=== PATIENT | male | born 1970 | race Caucasian/White ===

== ENCOUNTER 2023-01-10 01:06 | Emergency (ER) | payer OTHER, SELFPAY ==
[2023-01-10 01:14] VITALS: BP 158/99; PULSE 87; RESP 20; TEMP 36.2; O2SAT 98
--- NOTE | 2023-01-10 01:17 | PC.NURSE ---
Wound cleansed with normal saline. Bandage applied in triage and wrapped with coban.
--- NOTE | 2023-01-10 01:43 | ED.GENADULT ---
HPI - General Adult General Chief complaint: Extremity Injury, Lower Stated complaint: Laceration to left te Time Seen by Provider: 01/10/23 01:35 History of Present Illness HPI narrative: this is a 52-year-old male presenting to ED with chief complaint of toe laceration. He was walking on his driveway barefoot when he tripped and hit the tip of his toe on the ground. He has laceration to the tip of his right great toe. No other injuries. He does not know when his last Tdap was. He is not diabetic. Related Data Allergies Allergy/AdvReac Type Severity Reaction Status Date / Time Penicillins Allergy Unknown Verified 01/10/23 01:16 [facility] Past Medical History Medical History (Updated 01/10/23 @ 01:47 by Seth Nettles MD) Gout Social History Social History (Updated 01/10/23 @ 01:44 by Seth Nettles MD) Social History: drinks alcohol occasionally Exam Narrative: APPEARANCE: No apparent distress. Head: atraumatic. EYES: EOMI, NOSE: Atraumatic NECK: Trachea midline RESPIRATORY: No increased rate of breathing CARDIOVASCULAR: RRR, ABDOMINAL: Non-distended MUSCULOSKELETAl: focal exam of the left lower extremity revealed a avulsion of the skin on the tip of the toe with no exposed bone. Approximately 1 cm in diameter. No involvement of deeper structures. NEURO: Alert. Moving 4/4 extremities SKIN:: Warm, dry. Normal color PSYCHIATRIC: Normal affect Course Vital Signs Vital signs: Vital Signs Temperature 97.1 F L 01/10/23 01:14 Pulse Rate 87 01/10/23 01:14 Respiratory Rate 20 01/10/23 01:14 Blood Pressure 158/99 H 01/10/23 01:14 Pulse Oximetry 98 01/10/23 01:14 Oxygen Delivery Room Air 01/10/23 01:14 Temperature 97.1 F L 01/10/23 01:14 Pulse Rate 87 01/10/23 01:14 Respiratory Rate 20 01/10/23 01:14 Blood Pressure 158/99 H 01/10/23 01:14 Pulse Oximetry 98 01/10/23 01:14 Oxygen Delivery Room Air 01/10/23 01:14 Medical Decision Making MDM Narrative Medical decision making narrative: -Presentation: 52-year-old presenting with a toe laceration. The skin appears devitalized and I am not going to suture back down. We will dress it with a bandage see if the skin flap survives otherwise will have to heal by secondary intention. Wound was cleaned and dressed with bacitracin. Tdap booster was given. 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 -Procedures: -Interventions: Tdap, bacitracin -Shared decision making / Disposition: patient was discharged with primary care follow-up. Due to the location of injury he will be given a short course of Keflex. -RX Keflex 500 mg b.i.d. x5 days Vital Signs Vital Signs: Vital Signs Temperature 97.1 F L 01/10/23 01:14 Pulse Rate 87 01/10/23 01:14 Respiratory Rate 20 01/10/23 01:14 Blood Pressure 158/99 H 01/10/23 01:14 Pulse Oximetry 98 01/10/23 01:14 Oxygen Delivery Room Air 01/10/23 01:14 Temperature 97.1 F L 01/10/23 01:14 Pulse Rate 87 01/10/23 01:14 Respiratory Rate 20 01/10/23 01:14 Blood Pressure 158/99 H 01/10/23 01:14 Pulse Oximetry 98 01/10/23 01:14 Oxygen Delivery Room Air 01/10/23 01:14 Discharge Plan Discharge Clinical Impression: Avulsion of toe Patient Disposition: Home, Self-Care Condition: Stable Instructions: Antibiotic Form Additional Instructions: he was seen in the emergency department for a toe laceration. Please take a 5 day course of Keflex and keep the wound clean and dry. Please wear loose fitti
[2023-01-10] MEDS: TETANUS,DIPHTHERIA,AC PERTUSSIS ADULT (0.5 ML) BOOSTRIX IM (01:53)
[2023-01-10] MEDS: BACITRACIN OINTMENT 15 GM TUBE 1 APPLIC TOPICAL (01:54)
--- NOTE | 2023-02-13 11:31 | PC.NURSE ---
LATE ENTRY This note is being entered to document information to the patient's record. The following information was omitted on [01/10/23], by []. Wound site verified to be the Right 1st toe.
== END 2023-01-10 02:09 | disposition home or self-care (01) ==
LOC: ANHED 01:57
PROVIDERS: Emergency Provider Emergency Medicine; PCP Family Medicine Sports Medicine
DX: S91.112A Laceration without foreign body of left great toe without damage to nail, initial encounter (principal); M10.9 Gout, unspecified; W18.40XA Slipping, tripping and stumbling without falling, unspecified, initial encounter
CPT/HCPCS: 90471; 90715; 99283; A9270

== ENCOUNTER 2024-10-26 00:19 | Day surgery (SDC) | payer OTHER, SELFPAY ==
[2024-10-20 08:37] VITALS: BMI 36.2
--- NOTE | 2024-10-25 15:01 | WPDANESEPPF ---
Anes - Initial Pre Proc Eval Procedure: Operation Date: 10/26/24 08:00 Proposed Procedures p Screening Colonoscopy - Lul Marie MD Date/Time: 10/25/24 15:01 Surgeon: Lul Marie MD Pre Op Diagnosis: screening malignant neoplasm colon Patient Data Age: 54 Gender: M Height: 1.91 m Weight: 131.5 kg Allergies Allergy/AdvReac Type Severity Reaction Status Date / Time Penicillins Allergy Unknown Verified 10/20/24 08:31 Home Medications ?Medication ?Instructions ?Recorded ?Confirmed ?Type cephalexin 500 mg capsule 500 mg PO Q12H #10 caps 01/10/23 10/20/24 Rx allopurinol 100 mg tablet 100 mg PO DAILY 10/20/24 10/26/24 History ascorbic acid (vitamin C) 500 mg 500 mg PO DAILY 10/20/24 10/26/24 History chewable tablet (Acerola C) atorvastatin 20 mg tablet 20 mg PO QPM 10/20/24 10/26/24 History nppbgpvc-qdm-vhvkf acid 200 1 tablet PO DAILY 10/20/24 10/26/24 History mcg-vit K1 60 mcg-lycopene 600 mcg tablet (Men's Multivitamin) omega 4-wzb-iiz-fish oil 1,000 mg 1 cap PO DAILY 10/20/24 10/26/24 History (120 mg-180 mg) capsule (Fish Oil) vitamins A,C,L-smea-lbodgh 2,148 1 tablet PO ONCE 10/20/24 10/26/24 History mcg-113 mg-45 mg-17.4 mg tablet (PreserVision AREDS) Patient hx anesthesia problems: none Family hx anesthesia problems: none Results Review: All pre-operative results and documents have been reviewed as part of the pre-operative evaluation. FOR[facility]LY [facility], [facility] Past Medical History Medical History (Updated 10/26/24 @ 07:12 by Avery Goncalves DO) YANDEL (obstructive sleep apnea) GERD (gastroesophageal reflux disease) Hyperlipidemia Gout Surgical History Surgical History (Updated 10/25/24 @ 15:01 by Avery Goncalves DO) Hx of appendectomy Social History Social History (Updated 10/26/24 @ 07:12 by Avery Goncalves DO) Social History: drinks alcohol occasionally Smoking status: Never smoker Alcohol intake: never Substance use: current Substance use type: marijuana Other substance usage details: occasional Living arrangements: with family Spiritual care concerns: No Anes - Eval Final PreProcedure Day of Procedure 10/25/24 15:01 Patient weight: obese Heart: regular rate and rhythm Lungs: clear to auscultation Airway: Mallampati scale class II Neurological: alert and oriented Last oral intake: >/= 8 hours ASA classification: III Emergent: no Anesthetic plan: proceed Anesthesia type and monitoring: general GIVS and standard monitoring Results Review: All pre-operative results and documents have been reviewed as part of the pre-operative evaluation. Informed Consent: The patient's anesthetic plan and its attendant risks and benefits were discussed with the patient/family/POA. Questions were solicited and answers provided to the satisfaction of the patient/family/POA.
[2024-10-26 06:48] VITALS: BP 129/98; PULSE 83; RESP 16; TEMP 36; O2SAT 100
[2024-10-26] MEDS: LACTATED RINGERS 1,000 ML 150 ML IV CONT (07:00)
--- NOTE | 2024-10-26 07:46 | PM.HPGS ---
History of Present Illness History of Present Illness Consent: Risks, benefits, and alternatives have been discussed and questions answered. Patient agrees to proceed with procedure. Chief complaint: screening malignant neoplasm colon Narrative: Seth Gramajo is a 54 year old male here for first screening colonoscopy Review of Systems Review of Systems: All systems reviewed & are unremarkable except as noted in HPI and below PMFSH Past Medical History Medical History (Updated 10/26/24 @ 07:46 by Lul Marie MD) Colon cancer screening YANDEL (obstructive sleep apnea) GERD (gastroesophageal reflux disease) Hyperlipidemia Gout Surgical History Surgical History (Updated 10/25/24 @ 15:01 by Avery Goncalves DO) Hx of appendectomy Social History Social History (Updated 10/26/24 @ 07:12 by Avery Goncalvse DO) Social History: drinks alcohol occasionally Smoking status: Never smoker Alcohol intake: never Substance use: current Substance use type: marijuana Other substance usage details: occasional Living arrangements: with family Spiritual care concerns: No Meds Home Medications and Allergies Home Medications ?Medication ?Instructions ?Recorded ?Confirmed ?Type cephalexin 500 mg capsule 500 mg PO Q12H #10 caps 01/10/23 10/20/24 Rx allopurinol 100 mg tablet 100 mg PO DAILY 10/20/24 10/26/24 History ascorbic acid (vitamin C) 500 mg 500 mg PO DAILY 10/20/24 10/26/24 History chewable tablet (Acerola C) atorvastatin 20 mg tablet 20 mg PO QPM 10/20/24 10/26/24 History qvapdtux-vxw-mdwwo acid 200 1 tablet PO DAILY 10/20/24 10/26/24 History mcg-vit K1 60 mcg-lycopene 600 mcg tablet (Men's Multivitamin) omega 5-ylv-cnt-fish oil 1,000 mg 1 cap PO DAILY 10/20/24 10/26/24 History (120 mg-180 mg) capsule (Fish Oil) vitamins A,C,Z-uhjw-qeufyq 2,148 1 tablet PO ONCE 10/20/24 10/26/24 History mcg-113 mg-45 mg-17.4 mg tablet (PreserVision AREDS) Allergies Allergy/AdvReac Type Severity Reaction Status Date / Time Penicillins Allergy Unknown Verified 10/20/24 08:31 Vital Signs Vital Signs - 24 hr 10/26/24 06:48 Temperature 96.8 F L Pulse Rate 83 Respiratory Rate 16 Blood Pressure 129/98 H Pulse Oximetry 100 Oxygen Delivery Room Air Exam Const: General: comfortable and no acute distress HENMT: Face/Nose/Sinus: Normal nares present Eyes: General: appearance normal, both eyes and all related structures Neck: Neck: no JVD Resp: Auscultation: clear to auscultation bilaterally Cardio: Rate: regular rate Rhythm: regular rhythm GI: Inspection: non-distended GI Palp: Yes Soft to palpation Skin: General skin exam: normal color Neuro: General: gait normal Speech: normal speech Extrem: General: normal to inspection Psych: Mental Status: mental status grossly normal Assessment and Plan Assessment and plan (1) Colon cancer screening: Code(s): Z12.11 - Encounter for screening for malignant neoplasm of colon Status: Acute Assessment and Plan: colonoscopy
[2024-10-26 08:09] VITALS: BP 118/66; PULSE 82; RESP 21; O2SAT 97
[2024-10-26 08:19] VITALS: BP 121/76; PULSE 80; RESP 21; O2SAT 96
[2024-10-26 08:29] VITALS: BP 127/80; PULSE 77; RESP 21; O2SAT 98
--- OUTSIDE RECORDS SUMMARY | 2024-10-28 15:10 | XMS_ITS | Referral Summary ---
Author Organization [facility] Address [address] [place] [address] Care Team Providers Care Oxidation Operator Name Role Phone Unavailable Primary Care Provider Unavailabl e Source Comments [facility],non-owned Affiliates and Associated Physician Practices is amultiple site organization consisting of ambulatory clinics and hospital sitesin [place], [place], [place] and [place]. This disclosure is being madepursuant to the Care Everywhere program and may not contain all information available regarding this patient. Last updated 18.[facility] [employer] Allergies Active Allergy Reactions Criticality Noted Date Comments Penicillins Urticaria Medium 08/03/2019 Immunizations Name Administration Dates Next Due INFLUENZA VACCINE, QUADR. (F LUZONE; FLULAVAL; FLUARIX; AFLURIA QUADRIVALENT; 6MO+), 0.5 ML (IIV4) 08/03/2019 Social History Tobacco Use Types Packs/Day Years Used Date Smoking Tobacco: Never Assessed Sex and Gender Information Value Date Recorded Sex Assigned at Not on file Gender Identity Not on file Sexual Orientation Not on file Plan of Treatment Not on file
--- OUTSIDE RECORDS SUMMARY | 2024-10-28 15:10 | XMS_ITS | Patient Health Summary ---
Author Organization [facility] Address [address] [place] [address] Care Team Providers Care Portable Sawyer Name Role Phone Unavailable Primary Care Provider Unavailabl e Note from [facility],non-owned Affiliates and Associated Physician Practices is amultiple site organization consisting of ambulatory clinics and hospital sitesin [place], [place], [place] and [place]. This disclosure is being madepursuant to the Care Everywhere program and may not contain all information available regarding this patient. Last updated 18.[facility] Allergies * Penicillins(Urticaria) -Medium Criticality Immunizations * INFLUENZA VACCINE, QUADR. (FLUZONE; FLULAVAL; FLUARIX; AFLURIA QUADRIVALENT; 6MO+), 0.5 ML (IIV4)(Given 08/03/2019) Social History Tobacco Use Types Packs/Day Years Used Date Smoking Tobacco: Never Assessed Sex and Gender Information Value Date Recorded Sex Assigned at Not on file Gender Identity Not on file Sexual Orientation Not on file
--- OUTSIDE RECORDS SUMMARY | 2024-10-28 15:10 | XMS_ITS | Clinical Summary ---
Author Organization [facility] [employer] Address [address] [place] [address] Care Team Providers Care Plant Protection Superintendent Name Role Phone Unavailable Primary Care Provider Unavailabl e Source Comments [facility],non-owned Affiliates and Associated Physician Practices is amultiple site organization consisting of ambulatory clinics and hospital sitesin [place], [place], [place] and [place]. This disclosure is being madepursuant to the Care Everywhere program and may not contain all information available regarding this patient. Last updated 18.[facility] [employer] Allergies Active Allergy Reactions Criticality Noted Date [...] Orientation Not on file Plan of Treatment Health Maintenance Due Date Last Done Comments COLOGUARD (AGES 45-75) - COL ON CA SCREENING 1968 COLON MONITORING 1968 COLONOSCOPY - COLON CA SCREENING 1968 CT COLONOGRAPHY - COLON CA SCREENING 1968 Colorectal Cancer Screening 1968 FIT - COLON CA SCREENING 1968 FLEX SIG - COLON CA SCREENING 1968 LIPID TESTING 1968 HIV SCREENING 1983 HEPATITIS C SCREENING 06/11/1986 DTAP/TDAP/TD VACCINES (1 - Tdap) 1987 HEPATITIS B VACCINE (1 of 3 - 19+ 3-dose series) 1987 PNEUMOCOCCAL VACCINE 50+ (1 of 1 - PCV) 2018 ZOSTER VACCINE (1 of 2) 2018 COVID-19 VACCINE (1 - 2023-2 5 season) 2024 INFLUENZA VACCINE (#1) 2024 08/03/2019 DEPRESSION SCREENING 10/06/2024 HIB VACCINE Aged Out No longer eligi ble based on patient's age to complete this topic HPV VACCINE Aged Out No longer eligi ble based on patient's age to complete this topic MENINGOCOCCAL (Group B) VACCINE Aged Out No longer eligible based on patient's age to complete this topic MENINGOCOCCAL VACCINE Aged Out No dayan nixon eligible based on patient's age to complete this topic PNEUMOCOCCAL VACCINE Aged Out No long er eligible based on patient's age to complete this topic
== END 2024-10-26 08:35 | disposition home or self-care (01) ==
PROVIDERS: PCP Nurse Practitioner; Visit Provider Internal Medicine Gastroenterology
PROC: 0DJD8ZZ Inspection of Lower Intestinal Tract, Via Natural or Artificial Opening Endoscopic (ICD-10-PCS; CPT 45378; principal; 2024-10-26 08:00)
DX: Z12.11 Encounter for screening for malignant neoplasm of colon (principal); D12.0 Benign neoplasm of cecum; K63.5 Polyp of colon; F12.90 Cannabis use, unspecified, uncomplicated
CPT/HCPCS: 45385; 88305; J2003; J2704; J7120